=== PATIENT | female | born 1990 | race Caucasian/White ===

== ENCOUNTER 2024-11-27 18:38 | Emergency (ER) | payer BC, OTHER | END 2024-11-27 21:06 | disposition home or self-care (01) | LOC: JP.ED 18:38 | DX: S60.212A Contusion of left wrist, initial encounter (principal); S60.012A Contusion of left thumb without damage to nail, initial encounter; W17.89XA Other fall from one level to another, initial encounter; Y93.89 Activity, other specified | CPT/HCPCS: 73110-26-LT; 73110-LT; 73130-26-LT; 73130-LT; 99283 ==